=== PATIENT | male | born 1955 | race Caucasian/White ===

== ENCOUNTER 2017-09-06 07:31 | Day surgery (SDC) | payer OTHER ==
[2017-09-05 13:15] VITALS: BMI 24.1
[2017-09-06 08:15] LABS: BASO % 0.7 % (0-2.0); EOS % 0.9 % (0-4.5); HEMATOCRIT 40.4 % (35.4-49); HEMOGLOBIN 13.2 GM/dL (11.7-16.9); LYMPH % 23.4 % (8-40); MCH 28.6 pg (25.7-33.7); MCHC 32.6 g/dl (32.0-35.9); MEAN CELL VOLUME 87.6 fl (80-96); MEAN PLT VOLUME 9.2 fl (7.5-11.1); MONO % 8.1 % (3.8-10.2); NEUT % 66.9 % (42.8-82.8); PLATELET COUNT 287 K/MM3 (134-434); RBC 4.61 M/mm3 (4.00-5.60); RDW 14.6 % (11.9-15.9); WHITE BLOOD COUNT 12.1 K/mm3 (4.0-10.0)
[2017-09-06 08:38] LABS: INR 1.23 (0.82-1.09); PROTHROMBIN TIME (PATIENT) 13.9 SEC (9.7-13.0)
[2017-09-06 08:55] VITALS: TEMP 98.5
[2017-09-06 15:50] VITALS: BP 113/63; PULSE 77
--- NOTE | 2017-09-08 16:00 | PATH ---
Surgical Pathology Report Patient Name: GABY GREGORY [facility]. Rec. #: [id number] /Age/Gender: 1955 (Age: 62) / M Account: [id number] Location: RADIOLOGY CAT S Taken: 09/06/2017 Received: 09/06/2017 Reported: 09/08/2017 Physicians: Elvira Jordan M.D. Specimen(s) Received LEFT LUNG BIOPSY Clinical History 62-year-old male with history of left upper lobe cancer status post chemotherapy and radiation therapy now with increased left upper lobe density either fibrosis versus recurrent mass Final Diagnosis LUNG, LEFT, UPPER LOBE, BIOPSY: POORLY DIFFERENTIATED CARCINOMA IN A BACKGROUND OF EXTENSIVE NECROSIS. SEE COMMENT. Comment: Few clusters of malignant epithelial cells in a background of necrosis. Immunohistochemical stains performed at [place], [place] ([id number]) and interpreted at [facility] show the tumor is positive for CK-7 and p40, while negative for TTF-1 and Napsin A. Overall findings show a poorly differentiated carcinoma with squamous differentiation. 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 Suggest clinical/radiologic correlation. Electronically Signed Nerissa Langston M.D. Gross Description Received in formalin labeled "left lung biopsy," are 4 sabillon, cylindrical portions of soft tissue ranging from 1.2-1.8 cm in length and averaging 0.1 cm in diameter. The specimens are submitted in toto in one cassette. 09/06/201709/06/2017
== END 2017-09-06 16:07 | disposition home or self-care (01) ==
LOC: JRADIR 07:31
PROVIDERS: ATTEND Internal Medicine Pulmonary Disease
PROC: 0BBJ3ZX Excision of Left Lower Lung Lobe, Percutaneous Approach, Diagnostic (ICD-10-PCS; principal; 2017-09-06)
DX: C34.32 Malignant neoplasm of lower lobe, left bronchus or lung (principal)
CPT/HCPCS: 32405; 36415; 71045-TC-FY; 76098-TC-FY; 77012-TC; 85025; 85610; 87899; 88305-TC